=== PATIENT | female | born 1985 | race Caucasian/White ===

== ENCOUNTER 2017-10-19 13:14 | Emergency (ER) | payer BC ==
--- NOTE | 2017-10-19 13:44 | EDM.PDOC ---
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 Patient states 15 minutes after eating [employer] states her stomach started to cramp and she became mildly nauseated. During this time she became a little bit dizzy with changes in her vision noted. Described as tunnel vision. She did not pass out. Symptoms only lasted for a short period of time. Nausea persists. There has been no emesis. She is 8 weeks . Verified by ultrasound. She denies any fever, chest pain, shortness of breath, and abdominal discomfort, painful urination, vaginal discharge, vaginal spotting, diarrhea, or any additional complaints. was confirmed by ultrasound. She has appointment with YARDER ENGINEER doctor the first part of October. She is only on vitamins. Has no past medical history and currently taking no medications. This is her first . - Related Data Allergies Allergy/AdvReac Type Severity Reaction Status Date / Time No Known Allergies Allergy Verified 11/18/15 16:15 Home Meds: Home Meds Doxylamine/Pyridoxine HCl [Geovanna Valenzuela 10-10 mg Tablet] 1 each PO TID PRN #15 tablet. 10/19/17 [Rx] Past Medical History - Past Surgical History HEENT Surgical History: Reports: Tonsillectomy Female Surgical History: Reports: Breast Biopsy Musculoskeletal Surgical History: Reports: Other (See Below) Other Musculoskeletal Surgeries/Procedures:: ACL repair Social & Family History - Tobacco Use Smoking Status *Q: Never Smoker Second Hand Smoke Exposure: No - Caffeine Use Caffeine Use: Reports: Coffee - Recreational Drug Use Recreational Drug Use: No ED ROS GENERAL - Review of Systems Review Of Systems: See Below ED EXAM - Physical Exam Exam: See Below Exam Limited By: No Limitations General Appearance: Alert, WD/WN, No Apparent Distress Eye Exam: Bilateral Eye: EOMI, PERRL Ears: Hearing Grossly Normal Nose: Normal Inspection Throat/Mouth: Normal Voice, No Airway Compromise Neck: Normal Inspection, Supple Respiratory/Chest: No Respiratory Distress, Lungs Clear, Normal Breath Sounds, No Accessory Muscle Use, Chest Non-Tender Cardiovascular: Normal Peripheral Pulses, Regular Rate, Rhythm GI/Abdominal Exam: Normal Bowel Sounds, Soft, Non-Tender, No Organomegaly, No Distention Extremities: Normal Inspection, Non-Tender Neurological: Alert, Oriented, CN II-XII Intact, Normal Cognition, No Motor/ Sensory Deficits Psychiatric: Normal Affect, Normal Mood Skin Exam: Warm, Dry, Intact, Normal Color Course - Vital Signs Last Recorded V/S: Last Vital Signs Temp 98.0 F 10/19/17 15:57 Pulse 88 10/19/17 15:57 Resp 18 10/19/17 15:57 BP 117/67 10/19/17 15:57 Pulse Ox 99 10/19/17 15:57 Orthostatic Blood Pressure [ 120/88 Standing] Orthostatic Blood Pressure [ 120/75 Sitting] Orthostatic Blood Pressure [ 116/76 Supine] - Orders/Labs/Meds Labs: Laboratory Tests 10/19/17 10/19/17 10/19/17 Range/Units 13:30 13:50 13:50 WBC 8.30 (3.98-10.04) K/mm3 RBC 4.16 (3.98-5.22) M/mm3 Hgb 12.4 (11.2-15.7) gm/L Hct 36.9 (34.1-44.9) % MCV 88.7 (79.4-94.8) fl MCH 29.8 (25.6-32.2) pg MCHC 33.6 (32.2-35.5) g/dl RDW Std Deviation 44.7 (36.4-46.3) fL Plt Count 283 (182-369) K/mm3 MPV 10.2 (9.4-12.3) fl Neutrophils % (Manual) 56 (40-60) % Band Neutrophils % 0 (0-10) % Lymphocytes % (Manual) 40 (20-40) % Atypical Lymphs % 0 % Monocytes % (Manual) 3 (2-10) % Eosinophils % (Manual) 1 (0.7-5.8) % Basophils % (Manual) 0 L (0.1-1.2) Platelet Estimate Adequate RBC Morph Comment Normal Sodium 140 (136-145) mEq/L Potassium 3.5 (3.5-5.1) mEq/L Chloride 104 (98-107) mEq/L Carbon Dioxide 24 (21-32) mEq/L Anion Gap 15.5 H (5-15) BUN 9 (7-18) mg/dL Creatinine 0.7 (0.55-1.02) mg/dL Est Cr Clr Drug Dosing 103.82 mL/min Estimated GFR (MDRD) > 60 (>60) mL/min BUN/Creatinine Ratio 12.9 L (14-18) Glucose 114 H (74-106) mg/dL Calcium 8.8 (8.5-10.1) mg/dL Total Bilirubin 0.3 (0.2-1.0) mg/dL AST 12 L (15-37) U/L ALT 10 L (14-59) U/L Alkaline Phosphatase 99 (46-116) U/L Total Protein 7.1 (6.4-8.2) g/dl Albumin 3.5 (3.4-5.0) g/dl Globulin 3.6 gm/dL Albumin/Globulin Ratio 1.0 (1-2) TSH 3rd Generation 4.016 H (0.358-3.74) uIU/mL HCG, Quant 54726.0 mIU/mL Urine Color Light yellow (Yellow) Urine Appearance Clear (Clear) Urine pH 7.0 (5.0-8.0) Ur Specific [place] 1.015 (1.005-1.030) Urine Protein Negative (Negative) Urine Glucose (UA) Negative (Negative) Urine Ketones Negative (Negative) Urine Occult Blood Negative (Negative) Urine Nitrite Negative (Negative) Urine Bilirubin Negative (Negative) Urine Urobilinogen 0.2 (0.2-1.0) Ur Leukocyte Esterase Negative (Negative) Urine RBC 0-5 (0-5) /hpf Urine WBC 0-5 (0-5) /hpf Ur Epithelial Cells 0-5 (0-5) /hpf Urine Bacteria Few (FEW) /hpf Urine Mucus Not seen (FEW) /hpf Meds: Medications Discontinued Medications Generic Name Dose Route Start Last Admin Trade Name Freq PRN Reason Stop Dose Admin Ondansetron HCl 4 mg 10/19/17 13:46 10/19/17 13:51 Zofran Odt PO 10/19/17 13:47 4 mg ONETIME ONE Administration - Re-Assessments/Exams Free Text/Narrative Re-Assessment/Exam: Vital signs reviewed. HR was documented as 38. Per nursing staff that was inaccurate. It should have been 83. Initial labs and studies to include: CBC, C14, HCG, TSH, and UA. Will obtain orthostatic vitals. Zofran 4mg ODT ordered. Orthostatic vitals: negative. Reassessment, patient states stomach irritation and nausea has subsided with the zofran. Labs reviewed: CBC and CMP were essentially normal. [place] 4.016[place] [address]. UA was negative. Patient to be discharged home with prescription for diclegis. Patient agrees with plan. Discharge instructions as documented. Departure - Departure Time of Disposition: 15:31 Disposition: Home, Self-Care 01 Condition: Good Clinical Impression: Nausea, Vasovagal episode - Discharge Information Prescriptions: Doxylamine/Pyridoxine HCl [Diclegis Dr 10-10 mg Tablet] 1 each PO TID PRN #15 tablet. PRN Reason: Nausea Instructions: Nausea, Adult, Vasovagal Syncope, Adult Referrals: Bianca Aguillon, ASSISTANT PROGRAM DIRECTOR [Primary Care Provider] - Forms: ED Department Discharge Additional Instructions: As discussed labs were essentially normal. TSH was mildly elevated further evaluation for thyroid suggested. See PCP for further testing. I do think this a incidental finding and is not contributing to your current situation. Suspect you had a vasovagal response when your stomach started to become upset with nausea.This has since resolved along with all additional symptoms. Suggest taking diclegis 1 tab three times a day as needed for nausea. Push the fluids. Eat a light diet. Keep appt with pressure sealer and tester as scheduled. Please return to the E.D. if you develop any new or worsening symptoms.
[2017-10-19] MEDS ORDERED: Ondansetron 4 MG Tab.DIS PO ONE (13:46)
[2017-10-19 16:01] VITALS: BP 117/67
== END 2017-10-19 15:57 | disposition home or self-care (01) ==
LOC: JD.ED 13:14
DX: O99.89 Other specified diseases and conditions complicating pregnancy, childbirth and the puerperium (principal); R55 Syncope and collapse; R11.0 Nausea; Z3A.08 8 weeks gestation of pregnancy
CPT/HCPCS: 36415; 80053; 81001; 84443; 84702; 85007; 85027; 99284; A9270; 99283

== ENCOUNTER 2018-06-06 09:13 | Inpatient (IN) | payer BC ==
[2018-06-06] MEDS ORDERED: Sodium Chloride 0.9% 10 ML Syringe FLUSH PRN (19:56)
[2018-06-06] MEDS ORDERED: Nalbuphine 20 MG/ML 1 ML Syringe IVPUSH PRN (19:56)
[2018-06-06] MEDS ORDERED: Misoprostol 25 MCG (1/4 of 100 MCG) Tab VAG ONE (19:58)
[2018-06-06] MEDS ORDERED: Oxytocin/Lactated Ringers 10 UNIT/1,000 ML BAG IV SCH ×2 (20:00)
[2018-06-06] MEDS: Misoprostol 25 MCG (1/4 of 100 MCG) Tab VAG SCH (23:32)
[2018-06-07] MEDS: Misoprostol 25 MCG (1/4 of 100 MCG) Tab VAG SCH ×2 (03:16→11:26)
[2018-06-07] MEDS: Lactated Ringers 1,000 ML IV SCH ×3 (04:47→08:41)
--- NOTE | 2018-06-07 05:15 | PCM.LDHP ---
L&D History of Present Illness - General Date of Service: 06/06/18 Admit Problem/Dx: Patient Status Order with Admit Dx/Problem 06/06/18 19:56 Patient Status [ADT] Routine Admission Diagnosis/Problem Admission Diagnosis/Problem 06/07/18 05:05 Kierra is a 32-year-old 1 para 0 white female who is admitted on 2018 for elective induction of labor at 40-4/7 weeks gestational age. MACHELLE is . Source of Information: Patient History Limitations: Reports: No Limitations - History of Present Illness Introduction:: Kierra is a 32-year-old 1 para 0 white female with an MACHELLE of 06/02/2018 placing her at 40-4/7 weeks gestational age upon admission for elective induction of labor. The procedure, risks, benefits, alternatives of care including allowing for onset of natural labor are all discussed with patient. She appears to understand and wishes to proceed with elective induction of labor. 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 MACHELLE 2018 as determined by a certain last menstrual starting on 08/26/2017 and supported by 2 ultrasounds done on 2017 and again on 01/25/2018. Patient had menarche at age 12. She has regular cycles. Last menstrual period was certain using no control time conception. The patient's course has been relatively unremarkable. She had an abnormal 1 hour glucose tolerance test and second trimester but had a normal three-hour glucose tolerance test. He has a history of slight depression. Her [place] depression screening score however on 2017 was 0_of 30. She is group B strep negative. Quad screen was negative done on 01/03/2018. Her first visit was at approximate 6 weeks' gestation. Her weight gain during intercourse. She is was 184.4 pounds up to 195 pounds for an 11 pound weight gain. Her vital signs stable throughout the . His been in vertex presentation and fundal height growth has been appropriate. Laboratory testing in shows a blood type O+ with a negative antibody screen. First labs showed hemoglobin 12.5 g/dL. Platelets are 290,000. Rubella titer showed immunity. RPR is nonreactive. Hepatitis B surface antigen and HIV assays were both negative as were Chlamydia and gonorrhea assays. Her diabetes screen was 138. Second trimester hemoglobin was 11.6 which time patient was started on ferrous sulfate 325 mg per day in addition to her vitamins. Platelets at that time were 280,000. Three-hour GTT was normal. Her yard second trimester was nonreactive. Group B strep screen was negative. T Dap was given on 04/04/2018. Allergies: amoxicillin Medications: 1. Vitamin C tablet chewabledaily 2. Ferrous sulfate 325 mg orally daily 3. vitamins 1 tablet orally daily Past medical history: 1. Left breast lump 2006 2. Torn ACL 2015 Past surgical history: 1. Left breast lumpectomy 2016 2. Right ACL repair in November 2015 3. Tonsillectomy as a child. Family history: She has no final cousin. She has 1 older brother who is healthy. Mother is alive and well as is her father. Maternal grandmother maternal grandfather and paternal grandmother are alive and well. Paternal grandfather secondary from a plane crash. No health concerns in on start on cold. No anesthesia, bleeding, blood clotting, related problems in the family. Social history: Patient is : is just starting [employer]. 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 She does not use any significant loss of alcohol, drugs or tobacco. They live in [place], [place]. Review of systems: In general patient has no complaints. Baby has been active. Skin: Negative Lungs: No infectious symptoms or shortness of breath Cardiovascular: No chest pain or exercise intolerance Breasts: No lumps, pain, dimpling, discharge or axillary or supraclavicular concerns. Change in size in early tenderness were noted secondary to . GI: Negative : Negative other than changes associated with . Musculoskeletal: Negative Neurological: Negative On last evaluation in clinic patient's blood pressure was 126/80, weight was 195 pounds. heart rate was 146. On first evaluation her height is 5 feet 5 inches, weight was 184.4 pounds a body mass index was 30.4. In general the patient is well-developed, well-nourished, pleasant female of stated age in no acute distress. Skin is warm dry without lesions. HEENT, neck and back within normal limits. Lungs are clear with good breath sounds in all lung gutierrez. Cardiovascular exam shows regular and rhythm without murmurs. Abdomen is protuberant with fundal height of 38+ centimeters on last evaluation in clinic. Baby in a vertex presentation by Yakov maneuvers. No inguinal lymphadenopathy or hernias are noted. Genital per digital exam shows cervix to be 1-2 cm, very posterior, 80% effaced , soft, -3 station, cephalic presentation. Extremities and neurological exam are grossly within normal limits. - Related Data Allergies/Adverse Reactions: Allergies Allergy/AdvReac Type Severity Reaction Status Date / Time No Known Allergies Allergy Verified 11/18/15 16:15 Home Medications: Home Meds Doxylamine/Pyridoxine HCl [Geovanna Valenzuela 10-10 mg Tablet] 1 each PO TID PRN #15 tablet. 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: Psychiatric History: Reports: Anxiety, Depression - Past Surgical History HEENT Surgical History: Reports: Tonsillectomy Other HEENT Surgeries/Procedures: wears glasses Female Surgical History: Reports: Breast Biopsy Musculoskeletal Surgical History: Reports: Other (See Below) Other Musculoskeletal Surgeries/Procedures:: ACL repair Social & Family History - Family History Family Medical History: Noncontributory - Tobacco Use Smoking Status *Q: Never Smoker Second Hand Smoke Exposure: No - Caffeine Use Caffeine Use: Reports: Coffee - Recreational Drug Use Recreational Drug Use: No H&P Review of Systems - Review of Systems: Review Of Systems: See Below L&D Exam - Exam Exam: See Below - Vital Signs Vital Signs: Last Vital Signs Temp 36.7 C 06/06/18 19:22 Pulse 92 06/06/18 19:22 Resp 18 06/06/18 19:22 BP 127/85 06/06/18 19:22 Pulse Ox 97 06/06/18 19:22 Weight: 88.904 kg - Patient Data Lab Results Last 24 hrs: Laboratory Results - last 24 hr 06/06/18 Range/Units 20:00 WBC 8.25 (3.98-10.04) K/mm3 RBC 4.23 (3.98-5.22) M/mm3 Hgb 11.8 (11.2-15.7) gm/L Hct 36.1 (34.1-44.9) % MCV 85.3 (79.4-94.8) fl MCH 27.9 (25.6-32.2) pg MCHC 32.7 (32.2-35.5) g/dl RDW Std Deviation 47.2 H (36.4-46.3) fL Plt Count 255 (182-369) K/mm3 MPV 10.7 (9.4-12.3) fl Neut % (Auto) 64.9 (34.0-71.1) % Lymph % (Auto) 27.4 (19.3-51.7) % [place] % (Auto) 6.9 (4.7-12.5) % Eos % (Auto) 0.5 L (0.7-5.8) Baso % (Auto) 0.1 (0.1-1.2) % Neut # (Auto) 5.35 (1.56-6.13) K/mm3 Lymph # (Auto) 2.26 (1.18-3.74) K/mm3 [place] # (Auto) 0.57 H (0.24-0.36) K/mm3 Eos # (Auto) 0.04 (0.04-0.36) K/mm3 Baso # (Auto) 0.01 (0.01-0.08) K/mm3 Result Diagrams: 06/06/18 20:00 Problem List Initiated/Reviewed/Updated: Yes Orders Last 24hrs: Active Orders 24 hr Category Date Time Status Patient Status [ADT] Routine ADT 06/06/18 19:56 Active Activity as Tolerated [RC] PFP Care 06/06/18 19:56 Active Communication Order [RC] ASDIRECTED Care 06/06/18 19:56 Active Heart Tones [RC] ASDIRECTED Care 06/06/18 19:56 Active Non Stress Test [RC] PER UNIT ROUTINE Care 06/06/18 19:56 Active Notify Provider [RC] PFP Care 06/06/18 19:56 Active Notify Provider [RC] PRN Care 06/06/18 19:56 Active Peripheral IV Care [RC] . DIRECTED Care 06/06/18 19:56 Active Vital Signs [RC] PER UNIT ROUTINE Care 06/06/18 19:56 Active Regular Diet [DIET] Diet 06/07/18 Breakfast Active RAPID PLASMA REAGIN,RPR [CHEM] Routine Lab 06/06/18 20:00 Received Lactated Ringers [Ringers, Lactated] 1,000 ml Med 06/06/18 20:00 Active IV ASDIRECTED Nalbuphine [Nubain] Med 06/06/18 19:56 Active 10 mg IVPUSH Q2H PRN Oxytocin/Lactated Ringers [Pitocin in LR 10 Units/1,000 Med 06/06/18 20:00 Active ML] 10 unit in 1,000 ml IV .CONTINUOUS Oxytocin/Lactated Ringers [Pitocin in LR 10 Units/1,000 Med 06/06/18 20:00 Active ML] 10 unit in 1,000 ml IV TITRATE Sodium Chloride 0.9% [Saline Flush] Med 06/06/18 19:56 Active 10 ml FLUSH ASDIRECTED PRN miSOPROStol [Cytotec] Med 06/07/18 00:00 Active 50 mcg VAG Q4HR Electronic Heart Tones Ext w TOCO [WOMSER] Oth 06/06/18 19:56 Ordered Routine Electronic Heart Tones Internal [WOMSER] Per Unit Oth 06/06/18 19:56 Ordered Routine Peripheral IV Insertion Adult [OM.PC] Routine Oth 06/06/18 19:56 Ordered Resuscitation Status Routine Resus Stat 06/06/18 19:56 Ordered Medication Orders Lactated Ringer's (Ringers, Lactated) 1,000 mls @ 100 mls/hr IV ASDIRECTED DESHAUN Last Admin: 06/07/18 04:47 Dose: 100 mls/hr Oxytocin/Lactated Ringer's (Pitocin In Lr 10 Units/1,000 Ml) 10 unit in 1,000 mls @ 12 mls/hr IV TITRATE DESHAUN; Protocol Last Admin: 06/07/18 05:01 Dose: 2 munits/min, 12 mls/hr Oxytocin/Lactated Ringer's (Pitocin In Lr 10 Units/1,000 Ml) 10 unit in 1,000 mls @ 500 mls/hr IV .CONTINUOUS DESHAUN Misoprostol (Cytotec) 50 mcg VAG Q4HR DESHAUN Last Admin: 06/07/18 03:16 Dose: 50 mcg Admin: 06/06/18 23:32 Dose: 50 mcg Nalbuphine HCl (Nubain) 10 mg IVPUSH Q2H PRN PRN Reason: pain Sodium Chloride (Saline Flush) 10 ml FLUSH ASDIRECTED PRN PRN Reason: Keep Vein Open Assessment/Plan Comment:: 1. 40-4/7 week intrauterine upon admission for an elective induction of labor. 2.Group B strep screen is negative 3. Patient plans to breast-feed 4. Would like to do a natural labor but would be okay with epidural if necessary 5. RPR is nonreactive. 6. Patient had T dap during Plan: 1. Cytotec 3-4 doses-initially 25 g dose then 50 g thereafter. 2. Natural labor unless patient desires epidural or other type of analgesia 3. RPR upon admission 4. Routine labor care. 5. Support breast-feeding decision.
[2018-06-07] MEDS ORDERED: Citric Acid/Sodium Citrate Solution 30 ML Cup ONE (08:22)
[2018-06-07] MEDS ORDERED: Metoclopramide 10 MG/2 ML SDV ONE (08:22)
[2018-06-07] MEDS ORDERED: Bupivacaine 0.5% 30 ML SDV ONE (08:26)
[2018-06-07] MEDS ORDERED: Phenylephrine 1% 10 MG/ML SDV ONE (08:27)
[2018-06-07] MEDS ORDERED: ceFAZolin 1 GM Vial ONE (08:27)
[2018-06-07] MEDS ORDERED: Metoclopramide 10 MG/2 ML SDV IVPUSH ONE (08:29)
[2018-06-07] MEDS ORDERED: ceFAZolin 2 GM in Premix Bag 1 BAG IV ONE (08:29)
[2018-06-07] MEDS ORDERED: Citric Acid/Sodium Citrate Solution 30 ML Cup PO ONE (08:29)
[2018-06-07] MEDS ORDERED: Morphine PF 1 MG/ML Amp ONE (08:30)
--- NOTE | 2018-06-07 08:57 | PCM.SN ---
- Free Text/Narrative Note: Cytotec cx ripening x 4 doses last night with minimal change to the cx. Pitocin augmentation started this AM. FHTs showing repetative moderate to severe variable decels and decrease in variability. Considering the lenght of labor still necessary to accomplish vaginal delivery in light of the patients cx status feel primary CS is indicated. Procedure, risks, benefits and alternatives d/w patient and . They appear to understand and wish to proceed. Consent is signed and orders are placed.
[2018-06-07] MEDS ORDERED: Ketorolac 30 MG/ML SDV ONE (09:24)
[2018-06-07] MEDS ORDERED: Lactated Ringers 1,000 ML ONE (09:31)
[2018-06-07] MEDS ORDERED: diphenhydrAMINE 50 MG/ML SDV IVPUSH PRN ×2 (09:56→11:03)
--- NOTE | 2018-06-07 09:57 | PCM.POSTAN ---
POST ANESTHESIA ASSESSMENT - MENTAL STATUS Mental Status: Alert, Oriented - VITAL SIGNS Pulse Rate: 81 SaO2: 100 Resp Rate: 12 Blood Pressure: 113/62 Temperature: 37.6 C - RESPIRATORY Respiratory Status: Respiratory Rate WNL, Airway Patent, O2 Saturation Stable, Supplemental Oxygen - CARDIOVASCULAR CV Status: Pulse Rate WNL, Blood Pressure Stable - GASTROINTESTINAL GI Status: No Symptoms - PAIN Pain Score: 0 - POST OP HYDRATION Hydration Status: Adequate & Stable - OBSERVATIONS Free Text/Narrative:: no anesthesia complications noted
--- NOTE | 2018-06-07 09:58 | PCM.PREANE ---
Preanesthetic Assessment - Anesthesia/Transfusion/Family Hx Anesthesia History: Prior Anesthesia Without Reaction Family History of Anesthesia Reaction: No Transfusion History: No Prior Transfusion(s) - Review of Systems General: No Symptoms Pulmonary: No Symptoms Cardiovascular: No Symptoms Gastrointestinal: Abdominal Pain (labor contractions ) Neurological: No Symptoms Other: Reports: None - Physical Assessment Pulse: 81 O2 Sat by Pulse Oximetry: 100 Respiratory Rate: 12 Blood Pressure: 113/62 Temperature: 37.6 C Vital Signs: Last Vital Signs Temp 37.6 C 06/07/18 09:57 Pulse 81 06/07/18 09:57 Resp 12 06/07/18 09:57 BP 113/62 06/07/18 09:57 Pulse Ox 100 06/07/18 09:57 Height: 1.65 m Weight: 88.904 kg ASA Class: 2E Mental Status: Alert & Oriented x3 Airway Class: Mallampati = 1 Dentition: Reports: Normal Dentition Thyro-Mental Finger Breadths: 3 Mouth Opening Finger Breadths: 3 ROM/Head Extension: Full Lungs: Clear to Auscultation, Normal Respiratory Effort Cardiovascular: Regular Rate, Regular Rhythm - Lab Values: Laboratory Last Values WBC 8.25 K/mm3 (3.98-10.04) 06/06/18 20:00 RBC 4.23 M/mm3 (3.98-5.22) 06/06/18 20:00 Hgb 11.8 gm/L (11.2-15.7) 06/06/18 20:00 Hct 36.1 % (34.1-44.9) 06/06/18 20:00 MCV 85.3 fl (79.4-94.8) 06/06/18 20:00 MCH 27.9 pg (25.6-32.2) 06/06/18 20:00 MCHC 32.7 g/dl (32.2-35.5) 06/06/18 20:00 RDW Std Deviation 47.2 fL (36.4-46.3) H 06/06/18 20:00 Plt Count 255 K/mm3 (182-369) 06/06/18 20:00 MPV 10.7 fl (9.4-12.3) 06/06/18 20:00 Neut % (Auto) 64.9 % (34.0-71.1) 06/06/18 20:00 Lymph % (Auto) 27.4 % (19.3-51.7) 06/06/18 20:00 [place] % (Auto) 6.9 % (4.7-12.5) 06/06/18 20:00 Eos % (Auto) 0.5 (0.7-5.8) L 06/06/18 20:00 Baso % (Auto) 0.1 % (0.1-1.2) 06/06/18 20:00 Neut # (Auto) 5.35 K/mm3 (1.56-6.13) 06/06/18 20:00 Lymph # (Auto) 2.26 K/mm3 (1.18-3.74) 06/06/18 20:00 [place] # (Auto) 0.57 K/mm3 (0.24-0.36) H 06/06/18 20:00 Eos # (Auto) 0.04 K/mm3 (0.04-0.36) 06/06/18 20:00 Baso # (Auto) 0.01 K/mm3 (0.01-0.08) 06/06/18 20:00 RPR Non-reactive (NONREACTIVE) 06/06/18 20:00 - Allergies Allergies/Adverse Reactions: Allergies Allergy/AdvReac Type Severity Reaction Status Date / Time No Known Allergies Allergy Verified 11/18/15 16:15 - Anesthesia Plan Pre-Op Medication Ordered: None - Acknowledgements Anesthesia Type Planned: Spinal Pt an Appropriate Candidate for the Planned Anesthesia: Yes Alternatives and Risks of Anesthesia Discussed w Pt/Guardian: Yes Pt/Guardian Understands and Agrees with Anesthesia Plan: Yes PreAnesthesia Questionnaire 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: Reports: 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 10/19/17 [Rx] - CURRENT (IN HOUSE) MEDS Current Meds: Current Medications Diphenhydramine HCl (Benadryl) 25 mg IVPUSH Q6H PRN PRN Reason: Itching Lactated Ringer's (Ringers, Lactated) 1,000 mls @ 100 mls/hr IV ASDIRECTED DESHAUN Last Admin: 06/07/18 08:41 Dose: 100 mls/hr Oxytocin/Lactated Ringer's (Pitocin In Lr 10 Units/1,000 Ml) 10 unit in 1,000 mls @ 12 mls/hr IV TITRATE DESHAUN; Protocol Last Titration: 06/07/18 06:52 Dose: 4 munits/min, 24 mls/hr Oxytocin/Lactated Ringer's (Pitocin In Lr 10 Units/1,000 Ml) 10 unit in 1,000 mls @ 500 mls/hr IV .CONTINUOUS DESHAUN Misoprostol (Cytotec) 50 mcg VAG Q4HR [facility] Last Admin: 06/07/18 03:16 Dose: 50 mcg Nalbuphine HCl (Nubain) 10 mg IVPUSH Q2H PRN PRN Reason: pain Sodium Chloride (Saline Flush) 10 ml FLUSH ASDIRECTED PRN PRN Reason: Keep Vein Open Discontinued Medications Bupivacaine HCl (Marcaine 0.5%) Confirm Administered Dose 30 ml .ROUTE .STK-MED ONE Stop: 06/07/18 08:27 Cefazolin Sodium (Ancef) Confirm Administered Dose 2 gm .ROUTE .STK-MED ONE Stop: 06/07/18 08:28 Citric Acid/Sodium Citrate (Bicitra Solution) Confirm Administered Dose 30 ml .ROUTE .STK-MED ONE Stop: 06/07/18 08:23 Last Admin: 06/07/18 08:31 Dose: 30 ml Citric Acid/Sodium Citrate (Bicitra Solution) 30 ml PO ONETIME ONE Stop: 06/07/18 08:30 Cefazolin Sodium/Dextrose 2 gm (/ Premix) 50 mls @ 100 mls/hr IV ONETIME ONE Stop: 06/07/18 08:58 Lactated Ringer's (Ringers, Lactated) Confirm Administered Dose 1,000 mls @ as directed .ROUTE .STK-MED ONE Stop: 06/07/18 09:32 Ketorolac Tromethamine (Toradol) Confirm Administered Dose 30 mg .ROUTE .STK- MED ONE Stop: 06/07/18 09:25 Metoclopramide HCl (Reglan) Confirm Administered Dose 10 mg .ROUTE .STK-MED ONE Stop: 06/07/18 08:23 Last Admin: 06/07/18 08:30 Dose: 10 mg Metoclopramide HCl (Reglan) 10 mg IVPUSH ONETIME ONE Stop: 06/07/18 08:30 Misoprostol (Cytotec) 25 mcg VAG ONETIME ONE Stop: 06/06/18 19:59 Last Admin: 06/06/18 20:08 Dose: 25 mcg Morphine Sulfate (Duramorph Pf) Confirm Administered Dose 1 mg .ROUTE .STK-MED ONE Stop: 06/07/18 08:31 Phenylephrine HCl (Stevie-Synephrine) Confirm Administered Dose 10 mg .ROUTE .STK- MED ONE Stop: 06/07/18 08:28
[2018-06-07] MEDS ORDERED: Ondansetron 4 MG/2 ML SDV IV PRN (11:03)
[2018-06-07] MEDS ORDERED: Lanolin 100% Cream 7 GM Tube TOP PRN (11:03)
[2018-06-07] MEDS ORDERED: ePHEDrine 50 MG/ML SDV IVPUSH PRN (11:03)
[2018-06-07] MEDS ORDERED: Naloxone 0.4 MG/ML SDV IVPUSH PRN (11:03)
[2018-06-07] MEDS ORDERED: Dextrose 5%-Lactated Ringers 1,000 ML IV SCH (11:03)
[2018-06-07] MEDS ORDERED: Docusate Sodium 100 MG Cap PO PRN (11:03)
[2018-06-07] MEDS: Simethicone 80 MG Tab.Chew PO SCH ×3 (14:50→23:27)
[2018-06-07] MEDS: Ibuprofen 800 MG Tab PO SCH ×2 (15:20→23:27)
[2018-06-08] MEDS: Ibuprofen 800 MG Tab PO SCH ×3 (07:22→23:48)
--- NOTE | 2018-06-08 08:13 | PCM48HPAN ---
Post Anesthesia Note - EVALUATION WITHIN 48HRS OF ANESTHETIC Vital Signs in Normal Range: Yes Patient Participated in Evaluation: Yes Respiratory Function Stable: Yes Airway Patent: Yes Cardiovascular Function Stable: Yes Hydration Status Stable: Yes Pain Control Satisfactory: Yes Nausea and Vomiting Control Satisfactory: Yes Mental Status Recovered: Yes (denies pain) Pulse Rate: 82 Resp Rate: 16 Temperature: 98.1 F Blood Pressure: 120/77
[2018-06-08] MEDS: Simethicone 80 MG Tab.Chew PO SCH ×4 (08:25→23:48)
--- NOTE | 2018-06-08 09:01 | PCM.OPNOTE ---
- General Post-Op/Procedure Note Date of Surgery/Procedure: 06/07/18 Operative Procedure(s): Primary lower uterine segment transverse section through Pfannenstiel skin incision Findings: Baby is in vertex presentation, amniotic fluid was clear. There was a cord wrapped moderately tightly around baby's lower abdomen. Three-vessel cord. Placenta normal. Uterus, tubes, ovaries consistent with term . Pre Op Diagnosis: 1. 40-5/7 week intrauterine . 2. Nonreassuring heart tones Post-Op Diagnosis: Same with delivery of viable, 2950 g (6 pound 8.1 ounce) male infant with Apgars of 8 and 9, length of 19.0 inches at 0913 hrs. on 2018. Anesthesia Technique: Spinal Other Anesthesia Type: Marcaine 0.5%20 mL local Primary Surgeon: Jaquan Small Secondary Surgeon: Chandler Sharpe Anesthesia Provider: Alban Mcnulty Reason Hole Puncher Strap Was Necessary: Assistance, retraction, patient's safety, quality of care. Role of Hole Puncher Strap: Same Fluid Replacement, Intraop: 1,200 EBL in mLs: 600 Drain/Tube Comments:: Indwelling bladder catheter Complications: None Condition: Good Free Text/Narrative:: Intake & Output 06/07/18 06/08/18 06/08/18 22:59 06:59 14:59 Intake Total 0 Output Total 500 750 Balance -500 -750 Surgery duration: 32 minutes Surgery duration: Procedure: The patient is appropriately consented. Patient was transferred to the room and placed in a sitting position. Spinal anesthesia was administered. After confirmation of adequate anesthesia patient was placed in a supine position with a wedge under her right side to facilitate left lateral positioning. The patient was prepped and draped in usual fashion after Soto catheter was already placed . The anesthetic was checked and found to be adequate. 20 mL of Marcaine 0.5% was injected locally in the Pfannenstiel incision site. The Pfannenstiel skin incision was then made and carried down through skin, subcutaneous and fascial layers. The fascia was then undermined superiorly and inferiorly to allow for adequate operating room. The recti muscles midline and preperitoneal fat was bluntly dissected. Peritoneal cavity was entered longitudinally. The vesicouterine peritoneum was then incised transversely and bladder flap was developed. Myometrium was incised transversely to the level of the amniotic sac. This incision was extended bilaterally in a blunt fashion. The amniotic sac was then ruptured resulting in clear amniotic fluid. A hand is placed in the low uterine segment and the baby's head was brought forth through the incision. The baby was completely delivered using fundal pressure in a routine fashion. It was found to have cord moderately tight around the lower abdomen and legs. Local cord had 3 blood vessels. The nose and mouth were bulb suctioned. Baby's cord was clamped x2 cut and baby was handed off to attending child welfare counselor Dr Carballo. Placenta was expressed after cord blood was obtained. Uterus was then exteriorized to allow for easier closure. The cervix was assessed and found to be dilated adequately to allow egress of blood. The uterus was closed in 2 layers. The first layer a running locked suture of 0 Monocryl, the second layer a running locked vertical mattress suture of 0 Monocryl. [id number] suture was placed at mid incision to control 1 bleeder. Hemostasis confirmed at this time. Sponge instrument needle counts are correct. The uterus was returned to the abdominal cavity and lateral gutters were cleared of blood. Once again sponge needle counts are correct. The anterior abdominal wall was closed with a #1 PDS suture from angle to angle. The subcutaneous area was found to be free of any bleeders. interrupted sutures of 3-0 Monocryl were used to reapproximate the subcutaneous layer.Skin was closed with a running subcuticular stitch of 3- 0 Monocryl in a vertical mattress suture fashion using a Babar needle. Prineo mesh/glue was then applied to further approximate the incision. It should be noted that patient received 2 g of Ancef preoperatively for infection prophylaxis and had Pitocin infused after delivery of the placenta to facilitate uterine contraction. She also had sequential compression stockings in place for DVT prophylaxis. Patient was discharged from the operating room in satisfactory condition.
--- NOTE | 2018-06-08 09:07 | PCM.SN ---
- Free Text/Narrative Note: note: Patient is doing well in the period. Minimal lochia, voiding well, ambulated without problems. Nursing without concerns. Patient is afebrile, vital signs are stable Abdomen is flat, soft, uterus is below the umbilicus and is firm and nontender. Incision appears to be dry, intact with Prineo mesh dry and intact. As the bowel sounds are noted Legs are nontender. Hemoglobin was 10.0. White blood count was 9.31. Platelets are 225,000. Assessment: Postop day #1 recovery going well. Plan: Routine care. Patient be discharged home within the next 24-48 hours.
[2018-06-08] MEDS: Acetaminophen/oxyCODONE 325-5 MG Tab PO PRN ×2 (10:04→17:30)
--- NOTE | 2018-06-09 06:56 | PCM.DCSUM1 ---
Discharge Summary - Hospital Course Free Text/Narrative:: Keirra is a 32-year-old 1 para 0 white female with an MACHELLE of 06/02/2018 placing her at 40-4/7 weeks gestational age upon admission for elective induction of labor. The procedure, risks, benefits, alternatives of care including allowing for onset of natural labor are all discussed with patient. She appears to understand and wishes to proceed with elective induction of labor. Patient underwent a Primary lower uterine segment transverse section through Pfannenstiel and skin incision under spinal block for a pattern of nonreassuring heart tones in intolerance of labor necessary to achieve vaginal delivery. Delivered a viable, pedroza, 2950 g male infant with Apgars of 8 and 9, length of 19.0 inches at 0913 hrs. on 06/07/2018. Postoperatively patient has done well. She is nursing without problems, voiding well, incision appears to be healing well and is dry. She is desiring discharge home. Follow-up labs are within normal limits. Vital signs are stable and patient is afebrile. Diagnosis: Stroke: No - Discharge Data Discharge Date: 06/09/18 Discharge Disposition: Home, Self-Care 01 Condition: Good - Patient Summary/Data Operative Procedure(s) Performed: Primary lower uterine segment transverse section through Pfannenstiel skin incision - Patient Instructions Diet: Regular Diet as Tolerated (Nursing diet and increase calories and calcium is recommended) Activity: As Tolerated (No lifting greater than 15 pounds, driving car 1 week. No intercourse or tampons until vaginal bleeding results.) Driving: Do Not Drive (1 week) Showering/Bathing: May Shower Wound/Incision Care: Keep Operative Site/Wound Site Clean and Dry Notify Provider of: Fever, Increased Pain, Swelling and Redness, Drainage, Nausea and/or Vomiting - Discharge Plan Prescriptions/Med Rec: Vit #108/Iron/FA [ One Tablet] 1 each PO DAILY #100 tablet Home Medications: Home Meds Doxylamine/Pyridoxine HCl [Geovanna Valenzuela 10-10 mg Tablet] 1 each PO TID PRN #15 tablet. 10/19/17 [Rx] Acetaminophen/oxyCODONE [Percocet 325-5 MG] 2 tab PO Q4H PRN tablet 06/09/18 [ Rx] Ibuprofen [Motrin] 800 mg PO Q8H tablet 06/09/18 [Rx] Vit #108/Iron/FA [ One Tablet] 1 each PO DAILY #100 tablet [Rx] Referrals: Jaquan Small MD [Primary Care Provider] - (Return to clinicDr. Geovanny Mane-2 weeks.) - Discharge Summary/Plan Comment DC Time >30 min.: No Discharge Summary/Plan Comment: Discharge instructions: 1. Discharge home 2. Diet, activity and follow-up discussed with patient. Recommend nursing diet with increased calories and calcium. 3. Precautions given concern increased pain, bleeding, temperature, signs/ symptoms of DVT/PE. 4. Medications per home medication was printed, discussed with and given to the patient. 5. Return to clinic-Dr. Small or Bianca Aguillon-CNP-[facility] [place] in 2 weeks. Diagnosis: Term -delivered by Condition: Good - Patient Data Vitals - Most Recent: Last Vital Signs Temp 36.8 C 06/09/18 04:47 Pulse 83 06/09/18 04:47 Resp 14 06/09/18 04:47 BP 121/85 06/09/18 04:47 Pulse Ox 98 06/09/18 04:47 Weight - Most Recent: 88.904 kg I&O - Last 24 hours: Intake & Output 06/08/18 06/08/18 06/09/18 14:59 22:59 06:59 Intake Total 1320 Output Total 1300 Balance 20 Med Orders - Current: Current Medications Diphenhydramine HCl (Benadryl) 25 mg IVPUSH Q6H PRN PRN Reason: Itching or Nausea Docusate Sodium (Colace) 100 mg PO Q12H PRN PRN Reason: Constipation Emollient Ointment (Lansinoh Hpa) 0 gm TOP ASDIRECTED PRN PRN Reason: Sore Nipples Ephedrine Sulfate (Ephedrine Sulfate) 5 mg IVPUSH SEECOMMENT PRN PRN Reason: Other Ibuprofen (Motrin) 800 mg PO Q8H [facility] Last Admin: 06/08/18 23:48 Dose: 800 mg Naloxone HCl (Narcan) 0.1 mg IVPUSH SEECOMMENT PRN PRN Reason: Respiratory Depression Ondansetron HCl (Zofran) 4 mg IV Q4H PRN PRN Reason: Nausea/Vomiting Oxycodone/Acetaminophen (Percocet 325-5 Mg) 2 tab PO Q4H PRN PRN Reason: Pain (moderate 4-6) Last Admin: 06/08/18 17:30 Dose: 1 tab Simethicone (Simethicone) 80 mg PO PCBED [facility] Last Admin: 06/08/18 23:48 Dose: 80 mg Discontinued Medications Bupivacaine HCl (Marcaine 0.5%) Confirm Administered Dose 30 ml .ROUTE .STK-MED ONE Stop: 06/07/18 08:27 Last Admin: 06/07/18 09:10 Dose: 20 ml Cefazolin Sodium (Ancef) Confirm Administered Dose 2 gm .ROUTE .STK-MED ONE Stop: 06/07/18 08:28 Citric Acid/Sodium Citrate (Bicitra Solution) Confirm Administered Dose 30 ml .ROUTE .STK-MED ONE Stop: 06/07/18 08:23 Last Admin: 06/07/18 08:31 Dose: 30 ml Citric Acid/Sodium Citrate (Bicitra Solution) 30 ml PO ONETIME ONE Stop: 06/07/18 08:30 Last Admin: 06/07/18 11:26 Dose: Not Given Diphenhydramine HCl (Benadryl) 25 mg IVPUSH Q6H PRN PRN Reason: Itching Lactated Ringer's (Ringers, Lactated) 1,000 mls @ 100 mls/hr IV ASDIRECTED DESHAUN Last Admin: 06/07/18 08:41 Dose: 100 mls/hr Oxytocin/Lactated Ringer's (Pitocin In Lr 10 Units/1,000 Ml) 10 unit in 1,000 mls @ 12 mls/hr IV TITRATE DESHAUN; Protocol Last Titration: 06/07/18 08:25 Dose: 0 munits/min, 0 mls/hr Oxytocin/Lactated Ringer's (Pitocin In Lr 10 Units/1,000 Ml) 10 unit in 1,000 mls @ 500 mls/hr IV .CONTINUOUS DESHAUN Cefazolin Sodium/Dextrose 2 gm (/ Premix) 50 mls @ 100 mls/hr IV ONETIME ONE Stop: 06/07/18 08:58 Last Admin: 06/07/18 11:26 Dose: Not Given Lactated Ringer's (Ringers, Lactated) Confirm Administered Dose 1,000 mls @ as directed .ROUTE .STK-MED ONE Stop: 06/07/18 09:32 Dextrose/Lactated Ringer's (Dextrose 5%-Lactated Ringers) 1,000 mls @ 125 mls/ hr IV ASDIRECTED DESHAUN Stop: 06/07/18 19:02 Last Admin: 06/07/18 14:33 Dose: 125 mls/hr Ketorolac Tromethamine (Toradol) Confirm Administered Dose 30 mg .ROUTE .STK- MED ONE Stop: 06/07/18 09:25 Metoclopramide HCl (Reglan) Confirm Administered Dose 10 mg .ROUTE .STK-MED ONE Stop: 06/07/18 08:23 Last Admin: 06/07/18 08:30 Dose: 10 mg Metoclopramide HCl (Reglan) 10 mg IVPUSH ONETIME ONE Stop: 06/07/18 08:30 Last Admin: 06/07/18 11:27 Dose: Not Given Misoprostol (Cytotec) 25 mcg VAG ONETIME ONE Stop: 06/06/18 19:59 Last Admin: 06/06/18 20:08 Dose: 25 mcg Misoprostol (Cytotec) 50 mcg VAG Q4HR [facility] Last Admin: 06/07/18 11:26 Dose: Not Given Morphine Sulfate (Duramorph Pf) Confirm Administered Dose 1 mg .ROUTE .STK-MED ONE Stop: 06/07/18 08:31 Nalbuphine HCl (Nubain) 10 mg IVPUSH Q2H PRN PRN Reason: pain Phenylephrine HCl (Stevie-Synephrine) Confirm Administered Dose 10 mg .ROUTE .STK- MED ONE Stop: 06/07/18 08:28 Sodium Chloride (Saline Flush) 10 ml FLUSH ASDIRECTED PRN PRN Reason: Keep Vein Open
[2018-06-09] MEDS: Ibuprofen 800 MG Tab PO SCH (08:02)
[2018-06-09] MEDS: Simethicone 80 MG Tab.Chew PO SCH ×2 (08:02→13:04)
[2018-06-09 09:21] VITALS: BP 116/79
== END 2018-06-09 12:50 | disposition home or self-care (01) | DRG 540 ==
LOC: JD.OB 09:13 → OBSVTOIN 06-07 09:13 → JD.OB 06-07 09:14
PROVIDERS: ADMIT Obstetrics & Gynecology; ATTEND Obstetrics & Gynecology
PROC: 3E0P7VZ Introduction of Hormone into Female Reproductive, Via Natural or Artificial Opening (ICD-10-PCS; principal; 2018-06-07)
PROC: 6A550ZT Pheresis of Cord Blood Stem Cells, Single (ICD-10-PCS; principal; 2018-06-07)
PROC: 10D00Z1 Extraction of Products of Conception, Low, Open Approach (ICD-10-PCS; principal; 2018-06-07)
DX: O48.0 Post-term pregnancy (principal); Z3A.40 40 weeks gestation of pregnancy; Z37.0 Single live birth; O76 Abnormality in fetal heart rate and rhythm complicating labor and delivery; O99.344 Other mental disorders complicating childbirth; F32.9 Major depressive disorder, single episode, unspecified; F41.9 Anxiety disorder, unspecified; O36.8130 Decreased fetal movements, third trimester, not applicable or unspecified; O99.62 Diseases of the digestive system complicating childbirth; K21.9 Gastro-esophageal reflux disease without esophagitis
CPT/HCPCS: 01961; 36415; 59025; 85025; 86592; 86850; 86900; 86901; A9270-GY; J0690; J1885; J2274; J2370; J2590; J2765; J3490; J7042; J7120

== ENCOUNTER 2020-06-12 08:00 | Inpatient (IN) | payer BC ==
--- NOTE | 2020-06-10 10:39 | PCM.LDHP ---
L&D History of Present Illness - General Date of Service: 06/15/20 Admit Problem/Dx: Admission Diagnosis/Problem Admission Diagnosis/Problem 06/10/20 10:29 Kierra is a 34-year-old 2 para 1-0-0-1 white female admitted on 06/15/2020 at 39-6/7 weeks gestational age with an MACHELLE of 06/16/2020 for elective repeat section. Source of Information: Patient History Limitations: Reports: No Limitations - History of Present Illness Introduction:: Kierra is a 34-year-old 2 para 1-0-0-1 white female admitted on 06/15/2020 at 39-6/7 weeks gestational age with an MACHELLE of 06/16/2020 for elective repeat section. The procedure, its risks, benefits, alternatives of care including attempting a trial of labor after section for an attempt at vaginal after section, follow-up were discussed in detail with the patient. She appears understand, wishes to proceed and has signed a consent for the procedure. 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 MACHELLE 06/16/2020 is based upon a certain last menstrual period starting 09/10/2019. It is supported by at least 3 ultrasounds done on 11/27/2019, 12/23/2019 and 01/23/2020. Patient had menarche at age 12. Cycles every 30 days. Cycles are regular. She is not using any control at the time of conception. LMP of 09/10/2019 lasted for approximately 5 to 7 days. Patient denies any abnormal Pap smears or STIs. Her obstetric history includes the followin. Male infant born 06/07/2019 at 40-5/7 weeks gestational age6 pounds 8 ounces-[facility]: Patient had a certain last menstrual period that started on 09/10/2019. First visit was on 11/27/2019 at 11-1/7 weeks. She was seen on a very regular basis. She made normal fundal height growth. Her weight gain was from 184 pounds to 196.6 pounds for a 12.6 pound increase. Vital signs were stable throughout the course. Ultrasound is correlated with her LMP dating. She is group B strep negative. She has a history of gestational diabetes. She has been controlled well with diet alone. She declined flu shot. She plans on breast-feeding. Kierra had a Tdap given on 04/15/2020. She is rubella immune. Laboratory testing shows blood to be all positive with a negative antibody screen. Hemoglobin is 12.4 g/dL. Platelets were 269,000 at first visit. Rubella titer showed immunity. RPR is nonreactive. Urine culture was negative. Hepatitis B surface antigen and HIV assays were both negative. Chlamydia and gonorrhea tests were both negative. Second trimester labs showed a hemoglobin of 11.0 g/dL. She was started on ferrous sulfate 1 p.o. daily at a dose of 325 mg. Her platelets were 263,000. Her 1 hour GTT was elevated at 157. Her 3-hour glucose tolerance test was also elevated with a fasting blood sugar of 83. A 1 hour of 177. A 2-hour 161 and a 3-hour of 148 mg/dL. Group B strep screen done on 05/11/2020 was negative. Allergies: Amoxicillinreaction unknown Medications: 1. vitamins 1 p.o. daily 2. Ferrous sulfate 325 mg p.o. daily Past medical history: Gestational diabetes Past surgical history: 1. Left breast lumpectomy 2. Tonsillectomy 3. Right ACL repair November 2015 4. 2018. Family history: 1 older brother who is healthy. Mother is alive and well as is her father. Maternal grandfather and grandmother are alive and well. Paternal grandmother is alive and well. Paternal grandfather secondary from a plane crash. No health problems noted in family concerning bleeding, blood clotting sores, anesthesia problems or unusual reactions to medications or related issues. Social history: Patient is . She is a college graduate. 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 is Paul. She does not use any significant also alcohol, drugs or tobacco. She lives in [place], [place]. Review of systems: In general patient has no complaints. He has been active. She has not had any significant contractions. Skin: Negative Lungs: No infectious symptoms or shortness of breath Cardiovascular: No chest pain or exercise intolerance Breasts: No lumps, changes in size, pain, dimpling, discharge or axillary or supraclavicular concerns. GI: Negative : Body habitus changes related to . Musculoskeletal: Negative Neurological: Negative Physical exam: In general the patient is well-developed, well-nourished, pleasant female of stated age in no acute distress. Last evaluation clinic on 06/10/2020 her weight was 196.6 pounds. Blood pressure 108/62. heart rate is 132 and fundal height was 39.5. Skin is warm dry without lesions. HEENT, neck and back within normal limits. Lungs are clear with good breath sounds in all lung gutierrez. Cardiovascular exam shows regular and rhythm without murmurs. Breast exam not done at this time as it was done at first visit and found to be normal. Patient does plan to breast-feed. Abdomen is gravid with fundal height of 39.5 cm with baby in vertex presentation by Yakov maneuvers. Genital per rectal exam last done on 06/04/2020 shows cervix be closed, thick, firm. It is not repeated at this time.. Extremities and neurological exam are grossly within normal limits. - Related Data Allergies/Adverse Reactions: Allergies Allergy/AdvReac Type Severity Reaction Status Date / Time No Known Allergies Allergy Verified 11/18/15 16:15 Home Medications: Home Meds Doxylamine Succinate/Vit B6 [Geovanna Valenzuela 10-10 mg Tablet] 1 each PO TID PRN #15 tablet. 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 PURIFIER History: Reports: Psychiatric History: Reports: Anxiety, Depression - Past Surgical History HEENT Surgical History: Reports: Tonsillectomy Other HEENT Surgeries/Procedures: wears glasses Female Surgical History: Reports: Breast Biopsy Musculoskeletal Surgical History: Reports: Other (See Below) Other Musculoskeletal Surgeries/Procedures:: ACL repair Social & Family History - Family History Family Medical History: No Pertinent Family History - Caffeine Use Caffeine Use: Reports: Coffee H&P Review of Systems - Review of Systems: Review Of Systems: See Below L&D Exam - Exam Exam: See Below Problem List Initiated/Reviewed/Updated: Yes Assessment/Plan Comment:: 1Justin Lozada is a 34-year-old 2 para 1-0-0-1 white female admitted on 06/15/2020 at 39-6/7 weeks gestational age with an MACHELLE of 06/16/2020 for elective repeat section. The procedure, risk, benefits, alternatives of care including attempting a trial of labor after section for an attempt at a vaginal after section are all discussed in detail also discussed is care and follow-up of care. She appears understand, wishes to proceed with section and has signed a consent. 2. Group B strep screen negative 3. Patient desires to breast-feed 4. Patient is rubella immune. She had her Tdap on 04/15/2020. She declined her flu shot. 5. Patient had Ancef for her last section for prophylaxis. She did not have any adverse reactions to it. Plan: 1. Repeat lower in segment transverse section through Pfannenstiel skin incision under regional block scheduled for 06/15/2020 at 0800 hrs. 2. DVT prophylaxis with SCDs 3. We will again use Ancef 2 g IV preop for infection prophylaxis. 4. Support patient's breast-feeding decision 5. Routine preoperative lab and testing to include Covid19 testing, CBC, RPR, type and screen.
[2020-06-15] MEDS ORDERED: ceFAZolin 2 GM in Premix Bag 1 BAG IV ONE ×2 (04:30→05:00)
[2020-06-15] MEDS ORDERED: Sodium Chloride 0.9% 10 ML Syringe FLUSH PRN (04:30)
[2020-06-15] MEDS ORDERED: Metoclopramide 10 MG/2 ML SDV IVPUSH ONE (04:30)
[2020-06-15] MEDS ORDERED: Citric Acid/Sodium Citrate Solution 30 ML Cup PO ONE (04:30)
[2020-06-15] MEDS ORDERED: Oxytocin/Lactated Ringers 10 UNIT/1,000 ML BAG IV SCH (04:30)
[2020-06-15] MEDS ORDERED: Lactated Ringers 1,000 ML IV SCH (04:30)
[2020-06-15] MEDS ORDERED: ceFAZolin 1 GM Vial ONE (06:34)
[2020-06-15] MEDS ORDERED: Oxytocin 10 Units/1 ML SDV ONE (06:34)
[2020-06-15] MEDS ORDERED: Ondansetron 4 MG/2 ML SDV ONE (06:34)
[2020-06-15] MEDS ORDERED: Lactated Ringers 2,000 ML ONE (06:34)
[2020-06-15] MEDS ORDERED: Ketorolac 30 MG/ML SDV ONE (06:34)
[2020-06-15] MEDS ORDERED: Morphine PF 10 MG/10 ML SDV ONE (06:35)
--- NOTE | 2020-06-15 06:58 | PCM.PREANE ---
Preanesthetic Assessment - Procedure Proposed Procedure: Repeat C section - Anesthesia/Transfusion/Family Hx Anesthesia History: Prior Anesthesia Without Reaction Transfusion History: No Prior Transfusion(s) Intubation History: Unknown - Review of Systems General: No Symptoms Pulmonary: No Symptoms Cardiovascular: No Symptoms Gastrointestinal: No Symptoms Neurological: No Symptoms Other: Reports: Diabetes (Gestational DM:), Depression - Physical Assessment NPO Status Date: 06/14/20 NPO Status Time: 20:00 Vital Signs: Last Vital Signs Temp 36.4 C 06/15/20 05:23 Pulse 103 H 06/15/20 05:23 Resp 14 06/15/20 05:23 BP 119/87 06/15/20 05:23 Pulse Ox 96 06/15/20 05:23 Height: 1.65 m Weight: 89.811 kg ASA Class: 2 Mental Status: Alert & Oriented x3 Airway Class: Mallampati = 2 Dentition: Reports: Normal Dentition, Caries Thyro-Mental Finger Breadths: 3 Mouth Opening Finger Breadths: 3 ROM/Head Extension: Full Lungs: Clear to Auscultation, Normal Respiratory Effort Cardiovascular: Regular Rate, Regular Rhythm, No Murmurs - Lab Values: Laboratory Last Values WBC 8.81 K/mm3 (3.98-10.04) 06/15/20 05:20 RBC 4.15 M/mm3 (3.98-5.22) 06/15/20 05:20 Hgb 12.0 gm/dl (11.2-15.7) 06/15/20 05:20 Hct 36.9 % (34.1-44.9) 06/15/20 05:20 MCV 88.9 fl (79.4-94.8) 06/15/20 05:20 MCH 28.9 pg (25.6-32.2) 06/15/20 05:20 MCHC 32.5 g/dl (32.2-35.5) 06/15/20 05:20 RDW Std Deviation 49.1 fL (36.4-46.3) H 06/15/20 05:20 Plt Count 231 K/mm3 (182-369) 06/15/20 05:20 MPV 10.4 fl (9.4-12.3) 06/15/20 05:20 Neut % (Auto) 59.1 % (34.0-71.1) 06/15/20 05:20 Lymph % (Auto) 30.6 % (19.3-51.7) 06/15/20 05:20 Levy % (Auto) 8.4 % (4.7-12.5) 06/15/20 05:20 Eos % (Auto) 1.4 (0.7-5.8) 06/15/20 05:20 Baso % (Auto) 0.3 % (0.1-1.2) 06/15/20 05:20 Neut # (Auto) 5.20 K/mm3 (1.56-6.13) 06/15/20 05:20 Lymph # (Auto) 2.70 K/mm3 (1.18-3.74) 06/15/20 05:20 Levy # (Auto) 0.74 K/mm3 (0.24-0.36) H 06/15/20 05:20 Eos # (Auto) 0.12 K/mm3 (0.04-0.36) 06/15/20 05:20 Baso # (Auto) 0.03 K/mm3 (0.01-0.08) 06/15/20 05:20 SARS-CoV-2 RNA (KEYONNA) Negative (NEGATIVE) 06/15/20 05:21 Blood Type O POSITIVE 06/15/20 05:20 Gel Antibody Screen Negative 06/15/20 05:20 Above labs reviewed and noted and within acceptable ranges to proceed with c section. 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: Psychiatric History: Reports: Anxiety, Depression - Past Surgical History HEENT Surgical History: Reports: Oral Surgery, Tonsillectomy Other HEENT Surgeries/Procedures: wears glasses, wisdom teeth removal Female Surgical History: Reports: Breast Biopsy Musculoskeletal Surgical History: Reports: Other (See Below) Other Musculoskeletal Surgeries/Procedures:: ACL repair - SUBSTANCE USE Tobacco Use Status *Q: Never Tobacco User Second Hand Smoke Exposure: Yes Recreational Drug Use History: No - HOME MEDS Home Medications: Home Meds Pnv No.95/Ferrous Fum/Folic AC [ Tablet] 1 tab PO DAILY 06/15/20 [History] - CURRENT (IN HOUSE) MEDS Current Meds: Current Medications Oxytocin/Lactated Ringer's (Pitocin In Lr 10 Units/1,000 Ml) 10 unit in 1,000 mls @ 100 mls/hr IV ASDIRECTED DESHAUN; Protocol Lactated Ringer's (Ringers, Lactated) 1,000 mls @ 125 mls/hr IV ASDIRECTED DESHAUN Last Admin: 06/15/20 06:02 Dose: 125 mls/hr Documented by: Sodium Chloride (Saline Flush) 10 ml FLUSH ASDIRECTED PRN PRN Reason: Keep Vein Open Discontinued Medications Cefazolin Sodium (Ancef) Confirm Administered Dose 2 gm .ROUTE .STK-MED ONE Stop: 06/15/20 06:35 Citric Acid/Sodium Citrate (Bicitra Solution) 30 ml PO ONETIME ONE Stop: 06/15/20 04:31 Last Admin: 06/15/20 06:10 Dose: 30 ml Documented by: Cefazolin Sodium/Dextrose 2 gm (/ Premix) 50 mls @ 100 mls/hr IV ONETIME ONE Stop: 06/15/20 04:59 Lactated Ringer's (Ringers, Lactated) Confirm Administered Dose 2,000 mls @ as directed .ROUTE .STK-MED ONE Stop: 06/15/20 06:35 Ketorolac Tromethamine (Toradol) Confirm Administered Dose 30 mg .ROUTE .STK-MED ONE Stop: 06/15/20 06:35 Metoclopramide HCl (Reglan) 10 mg IVPUSH ONETIME ONE Stop: 06/15/20 04:31 Last Admin: 06/15/20 06:10 Dose: 10 mg Documented by: Miscellaneous Medication (Phenylephrine 1 Mg/10 Ml-Ns) Confirm Administered Dose 1 mg .ROUTE .STK-MED ONE Stop: 06/15/20 06:35 Morphine Sulfate (Duramorph Pf) Confirm Administered Dose 10 mg .ROUTE .STK-MED ONE Stop: 06/15/20 06:36 Ondansetron HCl (Zofran) Confirm Administered Dose 4 mg .ROUTE .STK-MED ONE Stop: 06/15/20 06:35 Oxytocin (Pitocin) Confirm Administered Dose 20 unit .ROUTE .STK-MED ONE Stop: 06/15/20 06:35
[2020-06-15] MEDS ORDERED: Bupivacaine 0.5% 30 ML SDV ONE (07:21)
[2020-06-15] MEDS ORDERED: ePHEDrine 50 MG/ML SDV IVPUSH PRN ×2 (07:31→11:03)
[2020-06-15] MEDS ORDERED: Ondansetron 4 MG/2 ML SDV IVPUSH PRN (07:31)
[2020-06-15] MEDS ORDERED: fentaNYL 100 MCG/2 ML SDV IVPUSH PRN (07:31)
[2020-06-15] MEDS ORDERED: diphenhydrAMINE 50 MG/ML SDV IVPUSH PRN ×2 (07:31→11:03)
[2020-06-15] MEDS ORDERED: HYDROmorphone 0.5 MG/0.5 ML Syringe IVPUSH PRN (07:32)
[2020-06-15] MEDS ORDERED: Meperidine 50 MG/ML Vial ONE (08:12)
--- NOTE | 2020-06-15 08:41 | PCM.POSTAN ---
POST ANESTHESIA ASSESSMENT - MENTAL STATUS Mental Status: Alert - VITAL SIGNS Vital Signs: Last Vital Signs Temp 98.2 06/15/20833 Pulse 73 06/15/20 0834 Resp 18 06/15/20 08 BP 101/53 06/15/20 08 Pulse Ox 95% 06/15/20 0834 - RESPIRATORY Respiratory Status: Respiratory Rate WNL, Airway Patent, O2 Saturation Stable - CARDIOVASCULAR CV Status: Pulse Rate WNL, Blood Pressure Stable - GASTROINTESTINAL GI Status: No Symptoms - POST OP HYDRATION Hydration Status: Adequate & Stable
--- NOTE | 2020-06-15 08:49 | PCM.OPNOTE ---
- General Post-Op/Procedure Note Date of Surgery/Procedure: 06/15/20 Operative Procedure(s): Repeat lower uterine segment transverse section through Pfannenstiel skin incision Findings: Uterus tubes and ovaries consistent with term . Lower uterine segment intact. Clear amniotic fluid. Baby in vertex presentation. Weight 2930 g (6 pounds 8 ounces, Apgars 9 and 9. Female infant born at 0809 hrs. on 06/15/2021 Pre Op Diagnosis: 1. 39 6/7-week intrauterine . 2. History of previous section desire for repeat section. Post-Op Diagnosis: Same Anesthesia Technique: Local Other Anesthesia Type: Marcaine 0.5% - 20 cclocal Primary Surgeon: Jaquan Small Secondary Surgeon: Neo Perry Anesthesia Provider: Sivan Conn Reason Administrative Processor Was Necessary: Retraction, assistance, patient safety, quality of care. Fluid Replacement, Intraop: 750 Output, Urine Amount: 300 EBL in mLs: 500 Drain/Tube Comments:: Indwelling bladder catheter Complications: None Condition: Good Free Text/Narrative:: Surgery duration: 26 minutes Surgery duration: Procedure: The patient is appropriately consented. Patient was transferred to the room and placed in a sitting position. Spinal anesthesia was administered. After confirmation of adequate anesthesia patient was placed in a supine position with a wedge under her right side to facilitate left lateral positioning. The patient was prepped and draped in usual fashion after Soto catheter was already placed . The anesthetic was checked and found to be adequate. 20 mL of Marcaine 0.5% was injected locally in the Pfannenstiel incision site. The Pfannenstiel skin incision was then made and carried down through skin, subcutaneous and fascial layers. The fascia was then undermined superiorly and inferiorly to allow for adequate operating room. The recti muscles midline and preperitoneal fat was bluntly dissected. Peritoneal cavity was entered longitudinally. The vesicouterine peritoneum was then incised transversely and bladder flap was developed. Myometrium was incised transversely to the level of the amniotic sac. This incision was extended bilaterally in a blunt fashion. The amniotic sac was then ruptured resulting in clear amniotic fluid. A hand is placed in the low uterine segment and the baby's head was brought forth through the incision. The baby was completely delivered using fundal pressure in a routine fashion. The nose and mouth were bulb suctioned. Baby's cord was clamped x2 cut and baby was handed off to attending ticketing agent Dr Gonsalez. Placenta was expressed after cord blood was obtained. Uterus was then exteriorized to allow for easier closure. The cervix was asse ssed and found to be dilated adequately to allow egress of blood. The uterus was closed in 2 layers. The first layer a running locked suture of 0 Monocryl, the second layer a running locked vertical mattress suture of 0 Monocryl. Hemostasis confirmed at this time. Sponge instrument needle counts are correct. The uterus was returned to the abdominal cavity and lateral gutters were cleared of blood. Once again sponge needle counts are correct. The anterior abdominal wall was closed with a #1 PDS suture from angle to angle. The subcutaneous area was found to be free of any bleeders. Skin was closed with a running subcuticular stitch of 3-0 Monocryl in a vertical mattress suture fashion using a Babar needle. Prineo mesh/glue was then applied to further approximate the incision. It should be noted that patient received 2 g of Ancef preoperatively for infection prophylaxis and had Pitocin infused after delivery of the placenta to facilitate uterine contraction. She also had sequential compression stockings in place for DVT prophylaxis. Patient was discharged from the operating room in satisfactory condition.
[2020-06-15] MEDS ORDERED: Naloxone 0.4 MG/ML SDV IVPUSH PRN (11:03)
[2020-06-15] MEDS ORDERED: Dextrose 5%-Lactated Ringers 1,000 ML IV SCH (11:03)
[2020-06-15] MEDS: Prenatal Multivitamin with Calcium/Folic Acid/Iron Tab PO SCH (12:03)
[2020-06-15] MEDS: Simethicone 80 MG Tab.Chew PO SCH ×4 (12:04→21:41)
[2020-06-15] MEDS: Ibuprofen 800 MG Tab PO SCH ×2 (14:33→22:55)
[2020-06-15] MEDS: Acetaminophen/oxyCODONE 325-5 MG Tab PO PRN (21:41)
[2020-06-16] MEDS: Ibuprofen 800 MG Tab PO SCH ×3 (06:09→22:41)
--- NOTE | 2020-06-16 07:34 | PCM48HPAN ---
Post Anesthesia Note - EVALUATION WITHIN 48HRS OF ANESTHETIC Vital Signs in Normal Range: Yes Patient Participated in Evaluation: Yes Respiratory Function Stable: Yes Airway Patent: Yes Cardiovascular Function Stable: Yes Hydration Status Stable: Yes Pain Control Satisfactory: Yes Nausea and Vomiting Control Satisfactory: Yes Mental Status Recovered: Yes Vital Signs: Last Vital Signs Temp 36.1 C 06/16/20 02:56 Pulse 75 06/16/20 02:56 Resp 16 06/16/20 07:00 BP 106/79 06/16/20 02:56 Pulse Ox 98 06/16/20 07:00 - COMMENTS/OBSERVATIONS Free Text/Narrative:: no anesthesia complications noted
[2020-06-16] MEDS: Simethicone 80 MG Tab.Chew PO SCH ×5 (08:07→21:11)
[2020-06-16] MEDS: Acetaminophen/oxyCODONE 325-5 MG Tab PO PRN ×3 (08:07→16:56)
[2020-06-16] MEDS: Prenatal Multivitamin with Calcium/Folic Acid/Iron Tab PO SCH (08:07)
[2020-06-16] MEDS: Docusate Sodium 100 MG Cap PO PRN (08:09)
--- NOTE | 2020-06-16 09:00 | PCM.SN.2 ---
- Free Text/Narrative Note: /postoperative day #1 Patient is doing well in the period. Minimal lochia, voiding well, ambulated without problems. Nursing without concerns. It is under good control. She is taken 1 dose of Percocet. Patient is afebrile, vital signs are stable Lungs show good breath sounds in all lung gutierrez. Abdomen is flat, soft, uterus is below the umbilicus and is firm and nontender. Incision appears intact, dry. Positive bowel sounds are noted. Prineo mesh in place Legs are nontender. Assessment: /postoperative day #1-recovery going well. Plan: Routine care. Patient is on a regular diet. Will increase activity. May shower today with incision uncovered. Patient be discharged home within the next 24-48 hours.
[2020-06-17 04:07] VITALS: BP 127/68; PULSE 72
[2020-06-17] MEDS: Ibuprofen 800 MG Tab PO SCH (07:18)
--- NOTE | 2020-06-17 08:36 | PCM.SN.2 ---
- Free Text/Narrative Note: Post Operative Progress Note POD #2 Subjective: Doing well overall. Ambulating without difficulty once up and out of bed. Reports that she is slow to getting out of bed due to abdominal soreness. Lochia minimal. Voiding without difficulty. Passing flatus but has not passed a bowel movement at this time. Tolerating regular diet without nausea or vomiting. Pain controlled with oral medications. Breast-feeding with occasional formula supplementation minimal difficulty. Objective: Vitals: Vital Signs - 24 hr 06/16/20 06/16/20 06/17/20 12:23 19:47 03:37 Temperature 36.2 C 36.5 C 36.2 C Pulse, 72 68 72 Peripheral Respiratory 14 16 16 Rate Blood Pressure 114/62 109/73 127/68 O2 Sat by Pulse 96 97 98 Oximetry Physical Exam General: Alert and oriented, no acute distress Lungs: Clear to auscultation bilaterally Heart: Regular rate and rhythm Abdomen: Soft, minimal appropriate tenderness, non-distended, fundus midline, nontender and 1 fingerbreadth below the umbilicus Incision: Clean, dry and intact, no erythema, bleeding or drainage with Prineo dressing in place Extremities: No edema ASSESSMENT: 34-year-old female -0-0-2 s/p repeat section POD #2 for history of section, complicated by A1 gestational diabetes, history of section and advanced maternal age PLAN: Doing well Breast-feeding with with occasional formula limitation with minimal difficulty. Assist as needed Incision healing well. Continue to keep clean and dry. Lochia minimal. Continue to monitor for appropriate lochia. Continue routine post-operative care Anticipate discharge home today Chandler Sharpe MD 8:35 AM 06/17/2020
--- NOTE | 2020-06-17 08:44 | PCM.DCSUM1 ---
Discharge Summary - Hospital Course Free Text/Narrative:: - General Post-Op/Procedure Note Date of Surgery/Procedure: 06/15/20 Operative Procedure(s): Repeat lower uterine segment transverse section through Pfannenstiel skin incision Findings: Uterus tubes and ovaries consistent with term . Lower uterine segment intact. Clear amniotic fluid. Baby in vertex presentation. Weight 2930 g (6 pounds 8 ounces, Apgars 9 and 9. Female infant born at 0809 hrs. on 06/15/2021 Pre Op Diagnosis: 1. 39 6/7-week intrauterine . 2. History of previous section desire for repeat section. Post-Op Diagnosis: Same Anesthesia Technique: Local Other Anesthesia Type: Marcaine 0.5% - 20 cclocal Primary Surgeon: Jaquan Small Secondary Surgeon: Neo Perry Anesthesia Provider: Sivan Conn Reason Fan Balancer Was Necessary: Retraction, assistance, patient safety, quality of care. Fluid Replacement, Intraop: 750 Output, Urine Amount: 300 EBL in mLs: 500 Drain/Tube Comments:: Indwelling bladder catheter Complications: None Condition: Good Free Text/Narrative:: Surgery duration: 26 minutes Surgery duration: Procedure: The patient is appropriately consented. Patient was transferred to the room and placed in a sitting position. Spinal anesthesia was administered. After confirmation of adequate anesthesia patient was placed in a supine position with a wedge under her right side to facilitate left lateral positioning. The patient was prepped and draped in usual fashion after Soto catheter was already placed . The anesthetic was checked and found to be adequate. 20 mL of Marcaine 0.5% was injected locally in the Pfannenstiel incision site. The Pfannenstiel skin incision was then made and carried down through skin, subcutaneous and fascial layers. The fascia was then undermined superiorly and inferiorly to allow for adequate operating room. The recti muscles midline and preperitoneal fat was bluntly dissected. Peritoneal cavity was entered longitudinally. The vesicouterine peritoneum was then incised transversely and bladder flap was developed. Myometrium was incised transversely to the level of the amniotic sac. This incision was extended bilaterally in a blunt fashion. The amniotic sac was then ruptured resulting in clear amniotic fluid. A hand is placed in the low uterine segment and the baby's head was brought forth through the incision. The baby was completely delivered using fundal pressure in a routine fashion. The nose and mouth were bulb suctioned. Baby's cord was clamped x2 cut and baby was handed off to attending insole cementer Dr Gonsalez. Placenta was expressed after cord blood was obtained. Uterus was then exteriorized to allow for easier closure. The cervix was assessed and found to be dilated adequately to allow egress of blood. The uterus was closed in 2 layers. The first layer a running locked suture of 0 Monocryl, the second layer a running locked vertical mattress suture of 0 Monocryl. Hemostasis confirmed at this time. Sponge instrument needle counts are correct. The uterus was returned to the abdominal cavity and lateral gutters were cleared of blood. Once again sponge needle counts are correct. The anterior abdominal wall was closed with a #1 PDS suture from angle to angle. The subcutaneous area was found to be free of any bleeders. Skin was closed with a running subcuticular stitch of 3-0 Monocryl in a vertical mattress suture fashion using a Babar needle. Prineo mesh/glue was then applied to further approximate the incision. It should be noted that patient received 2 g of Ancef preoperatively for infection prophylaxis and had Pitocin infused after delivery of the placenta to facilitate uterine contraction. She also had sequential compression stockings in place for DVT prophylaxis. Patient was discharged from the operating room in satisfactory condition. Diagnosis: Stroke: No - Discharge Data Discharge Date: 06/17/20 Discharge Disposition: Home, Self-Care 01 Condition: Good - Referral to Home Health Primary Care Physician: Jaquan Small MD - Patient Summary/Data Operative Procedure(s) Performed: Repeat lower uterine segment transverse section through Pfannenstiel skin incision Complications: None Consults: None Hospital Course: Kierra Zurita was admitted for elective repeat section. She was taken back to the OR and given spinal injection for anesthesia. She was given Keflex for antibiotic prophylaxis. She was prepped and draped in the normal fashion. On 06/15/2020 she had a normal repeat delivery of a live female at 08:09. Apgars of 9 and 9. Weight of 2930 g (6 pounds 8 ounces). She was closed in a normal fashion. There were no complications with the procedure. Please see the operative report for full details. Her post operative course was uneventful. Her pain was well controlled and she had minimal lochia. She was ambulating, tolerating a regular diet and voiding normally. She was passing flatus and has not had a bowel movement. She was breast feeding with occasional formula supplementation without difficulty. She was afebrile and her hematocrit was 34.1 on POD #1. She desired to be discharged home on the morning of POD #2. Her blood type is O+. - Patient Instructions Diet: Regular Diet as Tolerated Activity: Apply Ice, As Tolerated, No Lifting Over 25 Pounds Activity, Other: Nothing in the vagina for 6 weeks Driving: Do Not Drive (While taking narcotic medications or having significant pain) Showering/Bathing: May Shower Wound/Incision Care: Keep Operative Site/Wound Site Clean and Dry Notify Provider of: Fever, Increased Pain, Swelling and Redness, Drainage, Nausea and/or Vomiting Other/Special Instructions: Please contact your physician's office if you note any bleeding or pus coming from the abdominal incision. Please contact your physician's office if you have heavy vaginal bleeding enough to soak a pad in less than an hour for several hours. Monitor for any signs of an infection in the breasts with severe pain or redness of the breast. - Discharge Plan *PRESCRIPTION DRUG MONITORING PROGRAM REVIEWED*: No *COPY OF PRESCRIPTION DRUG MONITORING REPORT IN PATIENT TAMERA: No Home Medications: Home Meds Pnv No.95/Ferrous Fum/Folic AC [ Tablet] 1 tab PO DAILY 06/15/20 [History] Acetaminophen/oxyCODONE [Percocet 325-5 MG] 1 - 2 tab PO Q4H PRN tablet 06/17/20 [Rx] Docusate Sodium [Colace] 100 mg PO Q12H PRN cap 06/17/20 [Rx] Ibuprofen [Motrin] 800 mg PO Q8H tablet 06/17/20 [Rx] Simethicone 80 mg PO QID tab.chew 06/17/20 [Rx] Patient Handouts: Care After Delivery Referrals: Jaquan Small MD [Primary Care Provider] - (Follow-up in 2 to 3 weeks for routine postoperative visit or earlier as needed.) - Discharge Summary/Plan Comment DC Time >30 min.: No - Patient Data Vitals - Most Recent: Last Vital Signs Temp 36.2 C 06/17/20 03:37 Pulse 72 06/17/20 03:37 Resp 16 06/17/20 03:37 BP 127/68 06/17/20 03:37 Pulse Ox 98 06/17/20 03:37 Weight - Most Recent: 89.811 kg I&O - Last 24 hours: Intake & Output 06/16/20 06/17/20 06/17/20 22:59 06:59 14:59 Intake Total 0 Balance 0 Med Orders - Current: Current Medications Diphenhydramine HCl (Benadryl) 25 mg IVPUSH Q6H PRN PRN Reason: Itching or Nausea Docusate Sodium (Colace) 100 mg PO Q12H PRN PRN Reason: Constipation Last Admin: 06/16/20 08:09 Dose: 100 mg Documented by: Ephedrine Sulfate (Ephedrine Sulfate) 5 mg IVPUSH SEECOMMENT PRN PRN Reason: Other Ibuprofen (Motrin) 800 mg PO Q8H [facility] Last Admin: 06/17/20 07:18 Dose: 800 mg Documented by: Naloxone HCl (Narcan) 0.1 mg IVPUSH SEECOMMENT PRN PRN Reason: Respiratory Depression Oxycodone/Acetaminophen (Percocet 325-5 Mg) 1 tab PO Q4H PRN PRN Reason: Pain (moderate 4-6) Last Admin: 06/16/20 11:55 Dose: 1 tab Documented by: Oxycodone/Acetaminophen (Percocet 325-5 Mg) 2 tab PO Q4H PRN PRN Reason: Pain (severe 7-10) Last Admin: 06/16/20 16:56 Dose: 2 tab Documented by: Prenat Multivit/Pad Cutter/Iron/Folic Ac ( Plus Iron) 1 each PO DAILY [facility] Last Admin: 06/16/20 08:07 Dose: 1 each Documented by: Simethicone (Simethicone) 80 mg PO QID [facility] Last Admin: 06/16/20 21:11 Dose: 80 mg Documented by: Discontinued Medications Bupivacaine HCl (Marcaine 0.5%) Confirm Administered Dose 30 ml .ROUTE .STK-MED ONE Stop: 06/15/20 07:22 Last Admin: 06/15/20 08:05 Dose: 20 ml Documented by: Cefazolin Sodium (Ancef) Confirm Administered Dose 2 gm .ROUTE .STK-MED ONE Stop: 06/15/20 06:35 Citric Acid/Sodium Citrate (Bicitra Solution) 30 ml PO ONETIME ONE Stop: 06/15/20 04:31 Last Admin: 06/15/20 06:10 Dose: 30 ml Documented by: Diphenhydramine HCl (Benadryl) 25 mg IVPUSH Q6H PRN PRN Reason: pruritis Stop: 06/15/20 23:00 Ephedrine Sulfate (Ephedrine Sulfate) 5 mg IVPUSH ASDIRECTED PRN PRN Reason: Hypotension Stop: 06/15/20 23:00 Fentanyl (Sublimaze) 50 mcg IVPUSH Q5M PRN PRN Reason: Pain Stop: 06/15/20 23:00 Hydromorphone HCl (Dilaudid) 0.5 mg IVPUSH ONETIME PRN PRN Reason: Pain Stop: 06/15/20 23:00 Cefazolin Sodium/Dextrose 2 gm (/ Premix) 50 mls @ 100 mls/hr IV ONETIME ONE Stop: 06/15/20 04:59 Last Admin: 06/15/20 11:20 Dose: Not Given Documented by: Oxytocin/Lactated Ringer's (Pitocin In Lr 10 Units/1,000 Ml) 10 unit in 1,000 mls @ 100 mls/hr IV ASDIRECTED [facility]; Protocol Lactated Ringer's (Ringers, Lactated) 1,000 mls @ 125 mls/hr IV ASDIRECTED [facility] Last Admin: 06/15/20 06:02 Dose: 125 mls/hr Documented by: Lactated Ringer's (Ringers, Lactated) Confirm Administered Dose 2,000 mls @ as directed .ROUTE .STK-MED ONE Stop: 06/15/20 06:35 Dextrose/Lactated Ringer's (Dextrose 5%-Lactated Ringers) 1,000 mls @ 125 mls/hr IV ASDIRECTED DESHAUN Stop: 06/15/20 19:02 Last Admin: 06/15/20 12:05 Dose: 125 mls/hr Documented by: Ketorolac Tromethamine (Toradol) Confirm Administered Dose 30 mg .ROUTE .STK-MED ONE Stop: 06/15/20 06:35 Meperidine HCl (Meperidine) Confirm Administered Dose 50 mg .ROUTE .STK-MED ONE Stop: 06/15/20 08:13 Metoclopramide HCl (Reglan) 10 mg IVPUSH ONETIME ONE Stop: 06/15/20 04:31 Last Admin: 06/15/20 06:10 Dose: 10 mg Documented by: Miscellaneous Medication (Phenylephrine 1 Mg/10 Ml-Ns) Confirm Administered Dose 1 mg .ROUTE .STK-MED ONE Stop: 06/15/20 06:35 Miscellaneous Medication (Phenylephrine 1 Mg/10 Ml-Ns) 0 mg IVPUSH ONETIME ONE Stop: 06/15/20 07:32 Last Admin: 06/15/20 11:20 Dose: Not Given Documented by: Morphine Sulfate (Duramorph Pf) Confirm Administered Dose 10 mg .ROUTE .STK-MED ONE Stop: 06/15/20 06:36 Ondansetron HCl (Zofran) Confirm Administered Dose 4 mg .ROUTE .STK-MED ONE Stop: 06/15/20 06:35 Ondansetron HCl (Zofran) 4 mg IVPUSH ONETIME PRN PRN Reason: Nausea/Vomiting Stop: 06/15/20 23:00 Oxytocin (Pitocin) Confirm Administered Dose 20 unit .ROUTE .STK-MED ONE Stop: 06/15/20 06:35 Sodium Chloride (Saline Flush) 10 ml FLUSH ASDIRECTED PRN PRN Reason: Keep Vein Open
[2020-06-17] MEDS: Docusate Sodium 100 MG Cap PO PRN (09:12)
[2020-06-17] MEDS: Simethicone 80 MG Tab.Chew PO SCH (09:12)
[2020-06-17] MEDS: Acetaminophen/oxyCODONE 325-5 MG Tab PO PRN (09:13)
[2020-06-17] MEDS: Prenatal Multivitamin with Calcium/Folic Acid/Iron Tab PO SCH (11:14)
== END 2020-06-17 10:20 | disposition home or self-care (01) | DRG 540 ==
LOC: JD.OB 06-15 05:04
PROVIDERS: ADMIT Obstetrics & Gynecology; ATTEND Obstetrics & Gynecology
PROC: 10D00Z1 Extraction of Products of Conception, Low, Open Approach (ICD-10-PCS; principal; 2020-06-15)
DX: O34.211 Maternal care for low transverse scar from previous cesarean delivery (principal); Z37.0 Single live birth; O99.62 Diseases of the digestive system complicating childbirth; K21.9 Gastro-esophageal reflux disease without esophagitis; O24.429 Gestational diabetes mellitus in childbirth, unspecified control; Z20.822 Contact with and (suspected) exposure to COVID-19; Z3A.39 39 weeks gestation of pregnancy
CPT/HCPCS: 01961; 36415; 59025; 82947; 85025; 86592; 86850; 86900; 86901; 94762; A9270-GY; J0690; J1885; J2175; J2270; J2370; J2405; J2590; J2765; J3490; J7120; J7121; U0002